=== PATIENT | male | born 1995 | race Caucasian/White ===

== ENCOUNTER 2017-01-13 21:07 | Emergency (ER) | payer BC, OTHER ==
[~2017-01-13] VITALS: Ht 175.3 cm; Wt 77.0 kg
[2017-01-13 21:09] VITALS: BP 134/76; PULSE 84; RESP 15; TEMP 98.4; O2SAT 99
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
[2017-01-13] MEDS ORDERED: KETOROLAC TROMETHAMINE 60 MG/2 ML (IM) VIAL IM ONE (21:45)
[2017-01-13] MEDS ORDERED: ORPHENADRINE INJ 60 MG/2 ML AMP IM ONE (21:45)
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
[2017-01-13] MEDS ORDERED: BACL10TA PO (22:40)
[2017-01-13] MEDS ORDERED: IBUP800T23 PO (22:40)
== END 2017-01-13 23:13 | disposition home or self-care (01) ==
LOC: NEPK 21:07
DX: R07.89 Other chest pain (principal); V49.88XA Car occupant (driver) (passenger) injured in other specified transport accidents, initial encounter
CPT/HCPCS: 71101; 96372; 99284; J1885; J2360